=== PATIENT | male | born 1990 | race Caucasian/White ===

== ENCOUNTER 2019-12-25 22:57 | Emergency (ER) | payer OTHER ==
[~2019-12-25] VITALS: Ht 193 cm; Wt 135.1 kg
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
--- NOTE | 2019-12-25 23:10 | NUR ---
Dr. Jama at bedside for eval. pt to have procedural sedation and ankle reduction
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
[2019-12-25] MEDS ORDERED: PROPOFOL 10 MG/ML, 20ML ONE ×2 (23:24→23:52)
[2019-12-25] MEDS ORDERED: SODIUM CHLORIDE FLUSH 10ML SYR IVF ONE (23:30)
--- NOTE | 2019-12-25 23:30 | NUR ---
LATE ENTRY: REPORT OF PT FROM [facility] [place] AND ASSUMING CARE OF PT AT THIS TIME. PT ROOM SETUP FOR PROCEDURAL SEDATION AT THIS TIME. PT ATTACHED TO ALL VS AND CARDIAC MONITORS. VSS.
--- NOTE | 2019-12-25 23:48 | NUR ---
PT RECEIVED A TOTAL OF [address] GANDHI AT FOR REDUCTION AND IMMOBILIZATION OF PT RIGHT ANKLE. PT TOLERATED PROCEDURE WELL WITH NO COMPLICATIONS AND CONTINOUS MONITORING OF VS IS BEING PERFORMED. IV FLUIDS RUNNING OPEN AT THIS TIME. ALL VSS. NADN. AWAITING IMAGING AT THIS TIME.
[2019-12-26] MEDS ORDERED: PROPOFOL 10 MG/ML, 20ML IVPush ONE
--- NOTE | 2019-12-26 00:03 | NUR ---
XRAY AT BS FINISHING IMAGING OF PT. PT TO CT VIA [facility] AT THIS TIME.
--- NOTE | 2019-12-26 00:11 | NUR ---
PT BACK FROM CT VIA [facility] AT THIS TIME.
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
[2019-12-26 01:02] LABS: BASOPHILS # (AUTO) 0.04 x10^3/uL (0-0.1); BASOPHILS % (AUTO) 0 % (0-1); EOSINOPHILS # (AUTO) 0.11 x10^3/uL (0-0.4); EOSINOPHILS % (AUTO) 1 % (1-7); LYMPHOCYTES # (AUTO) 1.53 x10^3/uL (1-3.4); LYMPHOCYTES % (AUTO) 11 % (22-44); MD NO; MEAN CORPUSCULAR HGB CONC 32.7 g/dL (33.2-36.2); MEAN PLATELET VOLUME 7.9 fL (7.4-10.4); MONOCYTES # (AUTO) 0.67 x10^3/uL (0.2-0.8); MONOCYTES % (AUTO) 5 % (2-9); NEUTROPHILS # (AUTO) 11.94 x10^3/uL (1.8-6.8); NEUTROPHILS % (AUTO) 84 % (42-75); PLATELET COUNT 306 x10^3/uL (130-400); RED BLOOD COUNT 5.66 x10^6/uL (4.38-5.82); RED CELL DISTRIBUTION WIDTH 13.4 % (9.4-14.8)
[2019-12-26 01:07] LABS: ALBUMIN 3.8 g/dL (3.4-5.0); ANION GAP 8 mmol/L (5-15); CALCIUM 8.4 mg/dL (8.5-10.1); CHLORIDE 108 mmol/L (98-107); CREATININE 1.12 mg/dL (0.7-1.3)
--- NOTE | 2019-12-26 01:18 | NUR ---
PT ASLEEP IN [facility] AT THIS TIME. PT CERVICAL COLLAR D/C AFTER CONSULTATION WITH DR GANDHI. PT REMOVED FROM 02 AT THIS TIME AND TOLERATING ROOM AIR WELL. CALL LIGHT IS WITHIN REACH OF PT WITH NADN AT THIS TIME.
--- NOTE | 2019-12-26 02:12 | NUR ---
REPORT OF PT TO [place] AT THIS TIME. ALL QUESTIONS ANSWERED.
--- NOTE | 2019-12-26 02:39 | NUR ---
patient resting in bed. Asleep yet rousable. He is in no apparent distress. He was previously attempting to crawl out of bed to urinate. He was redirected and given a urinal.
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
[2019-12-26 04:07] VITALS: BP 110/79
== END 2019-12-26 05:31 | disposition home or self-care (01) ==
LOC: ED 23:27
DX: S82.61XA Displaced fracture of lateral malleolus of right fibula, initial encounter for closed fracture (principal); S09.90XA Unspecified injury of head, initial encounter; M54.2 Cervicalgia; X50.1XXA Overexertion from prolonged static or awkward postures, initial encounter; Y93.89 Activity, other specified; Y92.59 Other trade areas as the place of occurrence of the external cause; Y99.8 Other external cause status
CPT/HCPCS: 27840; 36415; 70450; 72125; 73030; 73600; 73610; 80048; 80307; 82040; 85025; 99285; J2704; 27818